=== PATIENT | male | born 1975 | race Caucasian/White ===

== ENCOUNTER 2018-04-19 19:57 | Inpatient (IN) | payer MEDICAID ==
[~2018-04-19] VITALS: Ht 175.3 cm; Wt 96.2 kg
[2018-04-19] MEDS ORDERED: SODIUM CHLORIDE 0.9% 1,000 ML IV ONE (21:44)
[2018-04-19] MEDS ORDERED: ONDANSETRON HCL 4MG/2ML INJ IV STA (21:44)
[2018-04-19] MEDS ORDERED: MORPHINE SULFATE 4 MG/ML CPJ (NOT FOR IM USE) IV STA (21:44)
[2018-04-19] MEDS ORDERED: TETANUS, DIPHTHERIA, PERTUSSIS VAC/PF 0.5ML (>7YR OLD) IM ONE (21:45)
[2018-04-19 22:10] LABS: CHLORIDE 109 mEq/L (98-107)
[2018-04-19 22:13] LABS: BASOPHILS % 0.4 % (0.0-2.0); EOSINOPHILS % 0.6 % (0.0-5.0); HEMATOCRIT. 44.3 % (42.0-52.0); HEMOGLOBIN. 15.3 g/dL (14.0-18.0); LYMPHOCYTES % 11.6 % (20.0-50.0); MEAN CORPUSCULAR HEMOGLOBIN 30.7 pg (28.0-32.0); MEAN PLATELET VOLUME 8.6 fl (7.4-10.4); MONOCYTES % 5.3 % (2.0-8.0); NEUTROPHILS % 82.1 % (40.0-76.0); PARTIAL THROMBOPLASTIN TIME 27.1 sec (23.4-31.0); PLATELET 230 x1000/uL (130-400); PROTHROMBIN TIME 10.5 sec (9.1-11.1); RED BLOOD CELL COUNT 4.98 mill/uL (4.7-6.1); RED CELL DISTRIBUTION WIDTH 13.1 % (11.6-14.6)
[2018-04-19] MEDS ORDERED: IOHEXOL-300 100 ML BOTTLE ONE (23:05)
[2018-04-19 23:58] LABS: BASOPHILS % 0.4 % (0.0-2.0); EOSINOPHILS % 0.4 % (0.0-5.0); HEMATOCRIT. 43.5 % (42.0-52.0); HEMOGLOBIN. 14.7 g/dL (14.0-18.0); LYMPHOCYTES % 15.8 % (20.0-50.0); MEAN CORPUSCULAR HEMOGLOBIN 30.5 pg (28.0-32.0); MEAN CORPUSCULAR VOLUME 90.2 fL (80.0-94.0); MEAN PLATELET VOLUME 8.8 fl (7.4-10.4); MONOCYTES % 5.4 % (2.0-8.0); PLATELET 241 x1000/uL (130-400); RED BLOOD CELL COUNT 4.82 mill/uL (4.7-6.1); RED CELL DISTRIBUTION WIDTH 13.6 % (11.6-14.6)
[2018-04-20] VITALS (22 sets, daily range): BP systolic 83–127; BP diastolic 47–84
[2018-04-20 00:48] LABS: CLARITY URINE CLEAR (CLEAR); COLOR URINE YELLOW (YELLOW); KETONES URINE NEGATIVE (NEGATIVE); LEUKOCYTE ESTERASE URINE NEGATIVE (NEGATIVE); NITRITE URINE NEGATIVE (NEGATIVE); OCCULT BLOOD URINE NEGATIVE (NEGATIVE); PROTEIN URINE NEGATIVE (NEGATIVE); SPECIFIC GRAVITY URINE 1.035 (1.005-1.030)
[2018-04-20] MEDS ORDERED: MORPHINE SULFATE 4 MG/ML CPJ (NOT FOR IM USE) IV NR (01:45)
[2018-04-20] MEDS ORDERED: LORAZEPAM 2MG/ML CPJ ONE (01:58)
[2018-04-20] MEDS ORDERED: LEVETIRACETAM 1000MG/100ML 100 ML IV ONE (02:00)
[2018-04-20] MEDS ORDERED: LORAZEPAM 2MG/ML CPJ IV ONE (02:00)
[2018-04-20] MEDS ORDERED: LEVETIRACETAM 500 MG in SODIUM CHLORIDE 0.9% 100 ML IV SCH ×2 (02:45→18:00)
[2018-04-20] MEDS ORDERED: LORAZEPAM 2MG/ML CPJ IV PRN (02:45)
[2018-04-20] MEDS ORDERED: ONDANSETRON HCL 4MG/2ML INJ IV PRN (02:45)
[2018-04-20] MEDS ORDERED: HYDROMORPHONE HCL/PF 2MG/ML CPJ IV PRN (02:45)
[2018-04-20] MEDS ORDERED: DEXT 5%/LACTATED RINGERS 1,000 ML IV SCH (06:15)
[2018-04-20] MEDS ORDERED: MORPHINE SULFATE 4 MG/ML CPJ (NOT FOR IM USE) IV PRN (06:15)
[2018-04-20] MEDS ORDERED: MVI, ADULT NO.1 10 ML, FOLIC ACID 1 MG, THIAMINE HCL 100 MG in SODIUM CHLORIDE 0.9% 1,0... IV NR ×4 (08:00)
[2018-04-20] MEDS ORDERED: PANTOPRAZOLE SODIUM 40 MG/VIAL IV SCH (09:00)
[2018-04-20] MEDS ORDERED: INFLUENZA VIRUS VACCINE(AFLURIA) 0.5ML SYR IM ONE (10:00)
[2018-04-20] MEDS ORDERED: IBUPROFEN 600MG TABLET PO SCH (15:00)
[2018-04-20] MEDS ORDERED: DEXT 5%/0.45% NACL 1000ML 1,000 ML IV SCH (16:00)
== END 2018-04-20 15:30 | disposition home or self-care (01) | DRG 55 ==
LOC: ER 19:57 → MICUNO 04-20 01:41 → EDBEDREQTM 04-20 01:55 → EDBEDREQSVC 04-20 01:55 → ENRESERV 04-20 03:50
PROVIDERS: ADMIT Internal Medicine; ATTEND Internal Medicine
DX: S06.6X0A Traumatic subarachnoid hemorrhage without loss of consciousness, initial encounter (principal); G40.409 Other generalized epilepsy and epileptic syndromes, not intractable, without status epilepticus; F17.210 Nicotine dependence, cigarettes, uncomplicated; S02.2XXA Fracture of nasal bones, initial encounter for closed fracture; V89.2XXA Person injured in unspecified motor-vehicle accident, traffic, initial encounter; Y93.89 Activity, other specified; Y92.89 Other specified places as the place of occurrence of the external cause; Y99.8 Other external cause status
CPT/HCPCS: 36415; 70486; 71045; 71260; 72170; 73562; 74177; 86850; 86900; 90471; 90686; 90715; 93005; 96361; 96374; 96375; 99285; C9113; J1953; J2060; J2270; J2405; J3411; J3490; J7030; J7050; J7121; Q9967